=== PATIENT | male | born 1995 | race Two or more races ===

== ENCOUNTER 2025-04-09 10:59 | Emergency (ER) | payer MEDICAID, SELFPAY ==
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
[2025-04-09] MEDS: DEXAMETHASONE SOD PHOS INJ 10 MG/ML VIAL IM (12:47)
== END 2025-04-09 12:50 | disposition home or self-care (01) ==
PROVIDERS: Emergency Provider Emergency Medicine
DX: M65.4 Radial styloid tenosynovitis [de Quervain] (principal); Y04.0XXA Assault by unarmed brawl or fight, initial encounter
CPT/HCPCS: 73110; 96372; 99283; A4565; J1100